=== PATIENT | female | born 1940 | race Caucasian/White ===

== ENCOUNTER 2020-09-30 | Outpatient (CLI) | payer MEDICARE | END 2020-09-30 09:58 | disposition home or self-care (01) ==

== ENCOUNTER 2020-11-17 16:15 | Outpatient (CLI) | payer MEDICARE ==
[2020-11-17 17:06] LABS: #Basophils 0.1 10x3/uL (0.0-0.2); #Eosinphils 0.4 10x3/uL (0.0-0.5); #Monocytes 0.7 10x3/uL (0.0-1.1); %Basophils 0.6 % (0.0-2.0); %Eosinophils 3.4 % (0.0-6.0); %Lymphocytes 31.7 % (18.0-47.0); %Neutrophils 57.1 % (40.0-75.0); Mean Corpuscular HGB CONC 33.7 g/dL (32.0-36.0); Mean Corpuscular Hemoglobin 31.3 pg (27.0-33.0); Mean Platelet Volume 11.3 fl (7.4-10.4); Platelet Count 272 10x3/uL (150-450); RBC Distribution Width 11.6 % (11.5-14.5); Red Blood Cell (RBC) Count 4.15 10x6/uL (3.90-5.03); White Blood Cell (WBC) Count 10.5 10x3/uL (3.5-10.5)
[2020-11-17 17:10] LABS: Prothrombin Time 10.7 sec (9.5-12.1)
[2020-11-17 17:13] LABS: Anion Gap 13 mmol/L (10-20); BUN (Urea Nitrogen) 18 mg/dL (9.8-20.1); Calc. Creatinine Clearance 0 mL/min (70-130); Calcium 10.3 mg/dL (7.8-10.44); Carbon Dioxide 25 mmol/L (23-31); Chloride 105 mmol/L (98-107); Glucose 90 mg/dL (83-110); Potassium 3.9 mmol/L (3.5-5.1); Sodium 139 mmol/L (136-145)
[2020-11-18 01:46] LABS: SARS-CoV-2 PCR by NAA Not Detected (NotDetected)
== END 2020-11-17 16:16 | disposition home or self-care (01) ==
LOC: LABBT 16:15
PROVIDERS: ATTEND Orthopaedic Surgery
DX: Z01.812 Encounter for preprocedural laboratory examination (principal); M16.12 Unilateral primary osteoarthritis, left hip; Z20.822 Contact with and (suspected) exposure to COVID-19
CPT/HCPCS: 80048; 85025; 85610; 87081; U0003; U0005

== ENCOUNTER 2020-11-22 06:40 | Inpatient (IN) | payer MEDICARE ==
[2020-11-19 11:39] VITALS: BMI 19.1
[2020-11-22] MEDS ORDERED: ceFAZolin 2 GM/DEX 5% 100 ML BAG ONE (07:15)
[2020-11-22] MEDS ORDERED: Tranexamic Acid 1,000 MG/10 ML VIAL ONE (07:15)
[2020-11-22] MEDS ORDERED: Sodium Chloride 0.9% 100 ML ONE (07:15)
[2020-11-22] MEDS ORDERED: Vancomycin 1 GM/200 ML BAG ONE (07:15)
[2020-11-22] MEDS ORDERED: Midazolam HCl 2 mg/2 ml Vial ONE (08:47)
[2020-11-22] MEDS ORDERED: Fentanyl 100 MCG/2 ML VIAL ONE ×3 (08:47→11:42)
[2020-11-22] MEDS ORDERED: Promethazine HCl 25 MG/ML VIAL IM PRN (09:13)
[2020-11-22] MEDS ORDERED: traMADol HCl 50 MG TAB PO PRN (09:13)
[2020-11-22] MEDS ORDERED: Acetaminophen 325 MG TAB PO PRN (09:13)
[2020-11-22] MEDS ORDERED: Ondansetron PF 4 MG/2 ML Vial IVP PRN (09:13)
[2020-11-22] MEDS ORDERED: Fentanyl 100 MCG/2 ML VIAL SLOW IVP PRN ×2 (09:13)
[2020-11-22] MEDS ORDERED: Zolpidem Tartrate 5 MG TAB PO PRN (09:13)
[2020-11-22] MEDS ORDERED: diphenhydrAMINE 25 MG CAP PO PRN (09:13)
[2020-11-22] MEDS ORDERED: HYDROcodone/Acetaminophen 10/325 mg Tablet PO PRN (09:13)
[2020-11-22] MEDS ORDERED: Bupivacaine HCl 0.5%/Epinephrine 1:200,000/PF 30 ml Vial ONE (09:33)
[2020-11-22] MEDS ORDERED: Ondansetron PF 4 MG/2 ML Vial ONE (09:33)
[2020-11-22] MEDS ORDERED: PROPOFOL 200 MG/20 ML VIAL ONE (09:33)
[2020-11-22] MEDS ORDERED: Bupivacaine PF 0.5% 30 ML VIAL ONE (10:17)
[2020-11-22] MEDS ORDERED: Promethazine HCl 25 MG/ML VIAL ONE (12:15)
[2020-11-22] MEDS: Ketorolac Tromethamine 30 MG/ML VIAL IVP SCH ×2 (13:35→20:19)
[2020-11-22] MEDS: Sodium Chloride 0.9% 1,000 ML IV SCH ×3 (13:39→22:13)
[2020-11-22] MEDS: CEFAZOLIN 2 GM in Premix Bag 1 BAG IVPB SCH ×2 (15:36→23:32)
[2020-11-22] MEDS: Senokot S 8.6-50 MG TAB PO SCH (20:18)
[2020-11-22] MEDS: Ferrous Gluconate 324 MG TAB PO SCH (20:18)
[2020-11-22] MEDS: Aspirin 81 mg Enteric Coated Tablet PO SCH (20:18)
[2020-11-23] MEDS: Ketorolac Tromethamine 30 MG/ML VIAL IVP SCH ×4 (04:51→19:38)
[2020-11-23 06:10] LABS: Mean Corpuscular HGB CONC 34.6 g/dL (32.0-36.0); Mean Corpuscular Hemoglobin 32.9 pg (27.0-31.0); Mean Corpuscular Volume 95.1 fL (78.0-98.0); Mean Platelet Volume 8.7 fL (7.4-10.4); Platelet Count 207 thou/uL (130-400); RBC Distribution Width 10.8 % (11.5-14.5); Red Blood Cell (RBC) Count 3.95 mill/uL (4.20-5.40); White Blood Cell (WBC) Count 13.8 thou/uL (4.8-10.8)
[2020-11-23] MEDS: Thyroid 60 MG TAB PO SCH (08:21)
[2020-11-23] MEDS: Metamucil PACK PO SCH (08:22)
[2020-11-23] MEDS: Ferrous Gluconate 324 MG TAB PO SCH ×2 (08:22→19:38)
[2020-11-23] MEDS: Multivitamin W/ Minerals 1 TAB PO SCH (08:22)
[2020-11-23] MEDS: Senokot S 8.6-50 MG TAB PO SCH ×2 (08:22→19:37)
[2020-11-23] MEDS: Aspirin 81 mg Enteric Coated Tablet PO SCH ×2 (08:22→19:37)
[2020-11-23] MEDS ORDERED: Non-Formulary Item 1 EACH (Psyllium Husk [Metamucil] 0.4 GM Capsule) PO SCH (09:00)
[2020-11-23] MEDS: HYDROcodone/Acetaminophen 5/325 mg Tablet PO PRN (12:43)
[2020-11-23] MEDS: Sodium Chloride 0.9% 1,000 ML IV SCH ×2 (15:07→20:25)
[2020-11-24] MEDS: Ketorolac Tromethamine 30 MG/ML VIAL IVP SCH ×2 (05:42→14:43)
[2020-11-24] MEDS: Senokot S 8.6-50 MG TAB PO SCH (08:29)
[2020-11-24] MEDS: Aspirin 81 mg Enteric Coated Tablet PO SCH (08:29)
[2020-11-24] MEDS: Thyroid 60 MG TAB PO SCH (08:29)
[2020-11-24] MEDS: Multivitamin W/ Minerals 1 TAB PO SCH (08:29)
[2020-11-24] MEDS: Ferrous Gluconate 324 MG TAB PO SCH (08:29)
[2020-11-24] MEDS: HYDROcodone/Acetaminophen 5/325 mg Tablet PO PRN ×2 (08:46→13:30)
[2020-11-24] MEDS: Metamucil PACK PO SCH (12:36)
[2020-11-24] MEDS: Sodium Chloride 0.9% 1,000 ML IV SCH (12:37)
[2020-11-24] MEDS ORDERED: Ondansetron ODT 4 MG TAB PO SCH (13:00)
[2020-11-24 15:42] VITALS: BP 151/64; TEMP 98.5
== END 2020-11-24 15:35 | disposition home health service (06) | DRG 470 ==
LOC: SDC 06:40 → SJJU 09:13 → SDC 11-23 11:18
PROVIDERS: ADMIT Orthopaedic Surgery; ATTEND Orthopaedic Surgery
PROC: 0SRB039 Replacement of Left Hip Joint with Ceramic Synthetic Substitute, Cemented, Open Approach (ICD-10-PCS; principal; 2020-11-22)
DX: M16.12 Unilateral primary osteoarthritis, left hip (principal); M87.9 Osteonecrosis, unspecified; Z20.822 Contact with and (suspected) exposure to COVID-19; I10 Essential (primary) hypertension; G43.909 Migraine, unspecified, not intractable, without status migrainosus; F17.210 Nicotine dependence, cigarettes, uncomplicated; Z88.5 Allergy status to narcotic agent; Z91.011 Allergy to milk products; Z79.899 Other long term (current) drug therapy
CPT/HCPCS: 36415; 85027; J0690; J1885; J2250; J2405; J2550; J2704; J3010; J3370; J3490; J7050; Q0162; S0020